=== PATIENT | male | born 1965 | race Caucasian/White ===

== ENCOUNTER 2024-09-21 13:29 | Emergency (ER) | payer BC, SELFPAY ==
[2024-09-21 13:38] VITALS: BMI 37.0
[2024-09-21 14:02] LABS: % Basophils 0.7 % (0-2); % Eosinophils 5.3 % (0-6); % Immature Granulocytes 0.2 % (0-0.5); % Lymphocytes 33.9 % (20.5-51.1); % Neutrophils 46.9 % (42.2-75.2); Absolute Eosinophils 0.3 10^3/uL (0-0.7); Absolute Lymphocytes 1.9 10^3/uL (1.2-3.4); Absolute Monocytes 0.7 10^3/uL (0.1-0.6); Absolute Neutrophils 2.7 10^3/uL (1.4-6.5); Hematocrit 44.7 % (39.0-52.0); Hemoglobin 15.5 g/dL (13.0-18.0); Mean Corp Hgb Conc. 34.7 g/dL (33.0-37.0); Mean Corpuscular Hgb 30.9 pg (27.0-31.0); Mean Corpuscular Volume 89.2 fL (80.0-94.0); Mean Platelet Volume 9.8 fL (7.4-10.4); Nucleated Red Blood Cells % 0 % (-); Platelet Count 278 10^3/uL (130-400); Red Blood Cell Count 5.01 10^6/uL (4.70-6.10); Red Cell Dist. Width 12.4 % (11.5-14.5); White Blood Cell Count 5.7 10^3/uL (4.8-10.8)
[2024-09-21 14:13] LABS: ALT (SGPT) 32 U/L (0-50); AST (SGOT) 16 U/L (17-59); Albumin 4.8 g/dl (3.5-5.0); Blood Urea Nitrogen 11 mg/dl (9-20); Calcium 9.6 mg/dl (8.4-10.2); Carbon Dioxide 27 mmol/L (22-30); Chloride 100 mmol/L (98-107); Estimated Creatinine Clearance > 125 ml/min; Glucose 96 mg/dl (70-99); Potassium 4.3 mmol/L (3.5-5.1); Sodium 137 mmol/L (135-145); Total Bilirubin 0.8 mg/dl (0.2-1.3); Total Protein 7.8 g/dl (6.3-8.2); eGFR > 60.00
[2024-09-21 14:38] LABS: Alkaline Phosphatase 80 U/L (38-126); Lipase 108 U/L (23-300)
[2024-09-21 17:52] VITALS: BP 181/109
--- NOTE | 2024-09-21 18:20 | ED.GENMED ---
History of Present Illness
General
Chief Complaint: Abdominal Pain
Source: patient
Exam Limitations: none
Time Seen by Provider: 09/21/24 18:04
History of Present Illness
History of Present Illness:
This is a 58 year old male that comes in with c/o abd pain. States that he has abd pain that has been going on for the past 1-2 weeks. States that he did see his PCP about a week ago and was given something for the cramping. States that he has mid
abd pain that hurts when he moves. States that it is like his stomach is getting tight. State that he also has low back pain bilaterally. States that he has a headache. Denies any fever, chills, chest pain, nausea, vomiting, diarrhea, dizziness,
urinary burning.
Past History
Past History
ED Past Medical History: None; Negative Asthma, HTN, Hypercholesterolemia or NIDDM
ED Past Surgical History: None
Social History
Tobacco: Non-smoker
Alcohol: None
Personal:
Living: with family
Employment: Employed
Review of Systems
Review of Systems
All Other Systems: ROS reviewed and negative except as documented in HPI and ROS
Constitutional: Reports no symptoms; Denies fever or chills
EENT: Reports no symptoms
Respiratory: Reports no symptoms; Denies cough or trouble breathing
Cardiac: Reports no symptoms; Denies chest pain
ABD/GI: Reports abdominal pain; Denies nausea, vomiting or diarrhea
: Reports no symptoms; Denies dysuria, frequency or urgency
Musculoskeletal: Reports back pain (bilateral low back pain)
Skin: Reports no symptoms
Neurological: Reports headache; Denies dizzy
Psychiatric: Reports no symptoms
Phy Exam
General Physical Exam
General Presentation: no apparent distress
General age: appears stated age
General Skin: warm and dry
General Habitus: obese
General Mental: anxious
General Hydration: appears well hydrated
ENT Exam
ENT Exam: TM's normal, pharynx normal and neck supple
Eye Exam
Eye Exam: EOMI
Cardiovascular Exam
Cardiovascular Exam: regular rate/rhythm, no edema, no murmur and normal peripheral pulses
Pulmonary Exam
Pulmonary Exam: lungs clear, no respiratory distress, no rales, chest non tender, no crackles, no rhonchi, no wheezing and no cough
Gastrointestinal Exam
Gastrointestinal Exam: soft, no organomegaly, no pulsatile mass, non distended, tender (Generalized tenderness with palpation) and other (Hypoactive bowel sounds, obese)
Musculoskeletal Exam
Musculoskeletal Exam: full ROM and no edema
Skin Exam
Skin Exam: normal color, warm/dry, no rash and no petechia
Psychiatric Exam
Psychiatric Exam: anxious
Course
Orders/Labs/Results
Orders:
Orders
09/21/24 13:45
Complete Blood Count/With Diff Urgent
Comprehensive Metabolic Panel Urgent
Lipase Urgent
09/21/24 14:18
Add On- LAB Urgent
Tests Added?: lipase
09/21/24 18:19
CT Abd/pelvis W Iv Cont Urgent
Comment:
Reason For Exam: Generalized tenderness with palpation
0.9% Sodium Chloride 500 ml [Nss] 500 ml IV BOLUS
Acetaminophen [Tylenol] 1,000 mg PO NOW STA
09/21/24 18:23
Pantoprazole [Protonix IV] 40 mg IV NOW STA
09/21/24 20:35
Urinalysis Reflex To Culture Urgent
Date Specimen was Collected: 09/21/24
Time Specimen was Collected: 20:28
Abnormal Lab Results
09/21/24
13:45
Absolute Monos (auto) 0.7 H 10^3/uL
(0.1-0.6)
Monocytes % 13.0 H %
(1.7-9.3)
AST 16 L U/L
(17-59)
09/21/24 13:45
09/21/24 13:45
AST very slightly low. Lipase normal at 108
Vital Signs
Initial and Last Documented VS:
Initial Vital Signs
Temp Pulse Resp Pulse Ox
98.1 F 79 18 99
09/21/24 13:36 09/21/24 13:36 09/21/24 13:36 09/21/24 13:36
Last Documented Vital Signs
Temp Pulse Resp BP Pulse Ox
97.9 F 70 20 150/84 98
09/21/24 19:49 09/21/24 19:45 09/21/24 19:45 09/21/24 19:46 09/21/24 17:52
MDM/Problems Addressed
Differential Diagnosis Includes:
Diverticulitis, Colitis
MDM/Problems Addressed:
This is a 58 year old male that comes in with c/o abd pain that has been going on for 1-2 weeks. Patient saw his PCP about 1 week ago and was given medication for spasm.
Will check lab, CT scan, IV fluid.
Back into see patient. Explained that his blood work is normal. reviewed Findings on CT scan. Patient to follow up with the family doctor. Tylenol or Ibuprofen for pain. Patient nance Flexeril at home and Tramadol. Patient to return with any concerns.
Chronic conditions affecting care:
NA
Acute Exacerbation and/or Progression of Chronic Illness:
NA
*Radiology
Radiology exam reviewed: radiology read reviewed (CT- Severe diffuse colonic diverticulosis (greatest in the sigmoid colon). Multiple bilateral nonobstructing intrarenal calculi. Moderate diffuse hepatic steatosis. Mild hepatomegaly. Small
fat-containing umbilical hernia. Moderate discogenic degenerative disease at L5/S1. Moderate calcific ) and other (CT cont- atherosclerotic plaque in the right coronary artery. )
*Pulse Oximetry
Patient hypoxic: no
*EKG
Interpreted by ED Provider?: NA
Rate: EKG- N/A
*Fourdrinier Tender Interpretation
Rate: Fourdrinier Tender- N/A
*Critical Care Note
Total Time (30-74mins, 75-104mins- exclusive of procedures): Not Applicable
ED Attending Note
-
Portions of this chart may have been created with voice recognition software.� Occasional wrong word or��sound alike� substitutions may have occurred due to the inherent limitations of voice recognition software.
Discharge Plan
Departure
Patient Disposition: Home (Routine Discharge)
Date of Disposition: 09/21/24
Time of Disposition: 21:10
Patient with high blood pressure during this ER visit?: Yes
Condition: Good
Covid-19: Not Applicable
Discharge Problem:
Abdominal pain, Degenerative disc disease at L5-S1 level
Instructions: Degenerative Disc Disease ED, Diverticulosis, Abdominal Pain, BLOOD PRESSURE
Referrals:
PRIVATE,PHYSICIAN [Family Provider] -
Activity Restrictions/Additional Instructions:
As discussed, your blood work is normal. Your CT shows that you have a fatty liver and diverticulosis. You also have degenerative changes at L5/S1. The nerves from the back warp around to the abd and this may be causing your abd pain. You have
stones in the kidney but they do not cause pain unless they started to move out of the kidneys. Please increase your water intake to 8-8oz glasses daily. You may use Tylenol 1000mg every 6 hours for pain and alternate with Ibuprofen 600mg every 6
hours with food. You may use the Flexeril for muscle spams. The Tramadol is a narcotic and will cause constipation. Follow up with the family doctor for recheck. IF YOU HAVE ANY OTHER CONCERNS PLEASE RETURN TO THE [facility] RO[facility]
Interventions
Interventions:
*Risk Screen - Suicide Last Done: 09/21/24 13:38
*General Assessment Last Done: 09/21/24 19:47
*Neglect/Abuse Screening Last Done: 09/21/24 13:38
*ED COVID-19 Vaccine History Last Done: 09/21/24 13:38
DX-Djpgnx-Suhgsproni Assessment Last Done: 09/21/24 19:47
Discharge Date and Time
Print Language: BERMUDIAN
[2024-09-21 19:07] VITALS: BP 155/92
[2024-09-21] MEDS: NSS 500 IV (19:07)
[2024-09-21] MEDS: PROTONIX IV 40 MG IV (19:41)
[2024-09-21] MEDS: TYLENOL 1000 MG PO (19:41)
[2024-09-21 19:46] VITALS: BP 150/84
[2024-09-21 20:53] LABS: Urine Albumin Negative (Neg - Trace); Urine Bilirubin Negative (Negative); Urine Character Clear (Clear); Urine Color Straw; Urine Glucose Negative (Negative); Urine Ketone Negative (Negative); Urine Leukocyte Negative (Negative); Urine Nitrite Negative (Negative); Urine Occult Blood Negative (Negative); Urine Specific Gravity 1.005 (<1.030); Urine Urobilinogen Negative (Neg - 1+)
[2024-09-21 21:24] VITALS: BP 137/94
[2024-09-21 21:42] VITALS: BP 137/94
== END 2024-09-21 21:43 | disposition home or self-care (01) ==
LOC: EMR 13:29
PROVIDERS: Clinical Nurse Specialist Family Health; Emergency Medicine; EMERGENCY PHYSICIAN Student in an Organized Health Care Education/Training Program
DX: R10.9 Unspecified abdominal pain (principal); M51.379 Other intervertebral disc degeneration, lumbosacral region without mention of lumbar back pain or lower extremity pain; K57.30 Diverticulosis of large intestine without perforation or abscess without bleeding; K42.9 Umbilical hernia without obstruction or gangrene; N20.0 Calculus of kidney; K76.0 Fatty (change of) liver, not elsewhere classified
CPT/HCPCS: 96361; 99284; 96374; 74177; 80053; 81003; 83690; 85025; Q9967